=== PATIENT | male | born 1960 | race African-American/Black ===

== ENCOUNTER 2023-04-21 14:18 | Emergency (ER) | payer OTHER ==
--- OUTSIDE RECORDS SUMMARY | 2023-04-21 14:21 | XMS REPORT | Continuity of Care Document ---
:1960 Author Organization [facility] t Address [address] [facility] [address] [place] [address] Care Team Providers Name Role Phone Asked, No Pcp Primary Care Physician Unavailable Manuel Villagran MD Attending Clinician Seth Rosas Attending Clinician SETH ROSAS Attending Clinician Unavailable NARCISO SRINIVASAN Attending Clinician Unavailable Payers Payer Name Policy Type Policy Number Effective Date Expiration Date S ource Problems Condition Condition Condition Status Onset Resolution Last Treating Co mments Source Name Details Category Date Date Treatment Clinician Date LEFT EAR LEFT EAR Diagnosis Active 2020-102021-09-04 Memoria Active 11-03 05:23:00 l 09/03/2021 00:00: Brendon Evangelista 00 Hospital History of Past Illness Condition Condition Condition Status Onset Resolution Last Treating Co mments Source Name Details Category Date Date Treatment Clinician Date Foreign Foreign Problem 2020-102021-09-06 2021-09-06 Memoria body in body in 11-04 22:01:05 22:01:05 l left ear, left ear, 18:00: Jass freitas initial initial 00 encounter encounter 09/04/2021 Tonja [facility] Allergies, Adverse Reactions, Alerts This patient has no known allergies or adverse reactions. Social History Social Habit Start Date Stop Date Quantity Comments Source History of tobacco Smokes tobacco [facility] use daily Hospital Sexual orientation [facility] Tobacco use and 2022-02-19 2022-02-19 Smokeless [facility] exposure 00:00:00 00:00:00 tobacco non-user Hospital Alcohol intake 2022-02-19 2022-02-19 Lifetime [facility] 00:00:00 00:00:00 non-drinker Hospital (finding) History of Social 2022-02-19 2022-02-[address] function 00:00:00 00:00:00 Hospital Sex Assigned At [birth year] [facility] 00:00:00 00:00:00 Hospital Smoking Status Start Date Stop Date Source Smokes tobacco daily 2022-02-19 00:00:00 [facility] Social History [facility] Medications Ordered Filled Start Stop Current Ordering Indication Dosage Frequency Signature Comments Components Source Medication Medication Date Date Medication? Clinician (SIG) Name Name Hydrocortis 2020-10 Yes 2 drp, Shamar danette one 11-04 LEFT EAR, l MG/ML / 06:02: QID, X 7 Brendon n Neomycin 00 day, # 10 3.5 MG/ML / mL, 0 Polymyxin B Refill(s) 30409 UNT/ML Otic Solution [Cortispori n Otic] Hydrocortis 2020-10 Yes 2 drp, Shamar danette one 11-04 LEFT EAR, l MG/ML / 06:02: QID, X 7 Brendon n Neomycin 00 day, # 10 3.5 MG/ML / mL, 0 Polymyxin B Refill(s) 81829 UNT/ML Otic Solution [Cortispori n Otic] Hydrocortis 2020-10 Yes 2 drp, Shamar danette one 11-04 LEFT EAR, l MG/ML / 06:02: QID, X 7 Brendon n Neomycin 00 day, # 10 3.5 MG/ML / mL, 0 Polymyxin B Refill(s) 93305 UNT/ML Otic Solution [Cortispori n Otic] Hydrocortis 2020-10 Yes 2 drp, Shamar danette one 11-04 LEFT EAR, l MG/ML / 06:02: QID, X 7 Brendon n Neomycin 00 day, # 10 3.5 MG/ML / mL, 0 Polymyxin B Refill(s) 39018 UNT/ML Otic Solution [Cortispori n Otic] Hydrocortis 2020-10 Yes 2 drp, Shamar danette one 10 1-09 LEFT EAR, l MG/ML / 06:02: QID, X 7 Brendon n Neomycin 00 day, # 10 3.5 MG/ML / mL, 0 Polymyxin B Refill(s) 66390 UNT/ML Otic Solution [Cortispori n Otic] Hydrocortis 2020-10 Yes 2 drp, Shamar danette one 10 1-09 LEFT EAR, l MG/ML / 06:02: QID, X 7 Brendon n Neomycin 00 day, # 10 3.5 MG/ML / mL, 0 Polymyxin B Refill(s) 92942 UNT/ML Otic Solution [Cortispori n Otic] Vital Signs Vital Name Observation Time Observation Value Comments Source Systolic blood 2022-02-19 11:17:00 178 mm[Hg] [facility] pressure Diastolic blood 2022-02-19 11:17:00 110 mm[Hg] [facility] pressure Heart rate 2022-02-19 11:17:00 82 /min [facility] Body temperature 2022-02-19 11:17:00 36.39 Юлия [facility] Respiratory rate 2022-02-19 11:17:00 18 /min [facility] Body height 2022-02-19 11:17:00 180.3 cm [facility] Body weight 2022-02-19 11:17:00 90.719 kg [facility] BMI 2022-02-19 11:17:00 27.89 kg/m2 [facility] Oxygen saturation in 2022-02-19 11:17:00 100 /min [facility] Arterial blood by Pulse oximetry Heart Rate 2021-09-04 05:59:00 [facility] Temperature Oral (F) 2021-09-04 05:59:00 98.2 F [facility] Systolic (mm Hg) 2021-09-04 05:59:00 Shamar [facility] Diastolic (mm Hg) 2021-09-04 05:59:00 Mem [facility] Respitory Rate 2021-09-04 05:59:00 Memori al [place] Weight 2021-09-04 05:24:00 [facility] Systolic (mm Hg) 2021-09-04 05:24:00 Shamar rial Phu Diastolic (mm Hg) 2021-09-04 05:24:00 Mem rickie [facility] Heart Rate 2021-09-04 05:24:00 [facility] Respitory Rate 2021-09-04 05:24:00 Benny al [facility] Procedures This patient has no known procedures. Plan of Care Planned Activity Planned Date Details Comments Source Future Scheduled 2023-04-14 [facility] Test 08:22:48 malignant neoplasm of colon (procedure) [code = 642719685] Future Scheduled 2023-04-14 [facility] Test 08:22:48 malignant neoplasm of colon (procedure) [code = 181965927] Future Scheduled 2023-04-14 [facility] Test 08:22:48 malignant neoplasm of colon (procedure) [code = 648768429] Future Scheduled 2023-04-14 Pneumococcal Vaccine: [facility] Test 08:22:48 Pediatrics (0 to 5 Years) and At-Risk Patients (6 to 64 Years) (1 - PCV) [code = Pneumococcal Vaccine: Pediatrics (0 to 5 Years) and At-Risk Patients (6 to 64 Years) (1 - PCV)] Future Scheduled 2023-04-14 Hepatitis C screening [facility] Test 08:22:48 (procedure) [code = 340865949] Future Scheduled 2023-04-14 [facility] Test 08:22:48 malignant neoplasm of colon (procedure) [code = 007582347] Future Scheduled 2023-04-14 [facility] Test 08:22:48 malignant neoplasm of colon (procedure) [code = 457470847] Future Scheduled 2023-04-14 [facility]ING[facility]ACCIN[facility] ([facility] 08:22:48 of 2) [code = SHINGLES VACCINES (1 of 2)] Future Scheduled 2023-04-14 COVID-19 VACCINE (4 - [facility] Test 08:22:48 Moderna series) [code = COVID-19 VACCINE (4 - Moderna series)] Future Scheduled 2023-04-14 INFLUENZA VACCINE [facility] Test 08:22:48 [code = INFLUENZA VACCINE] Future Scheduled 2022-11-10 Pneumococcal Vaccine: [facility] Test 12:12:32 Pediatrics (0 to 5 Years) and At-Risk Patients (6 to 64 Years) (1 - PCV) [code = Pneumococcal Vaccine: Pediatrics (0 to 5 Years) and At-Risk Patients (6 to 64 Years) (1 - PCV)] Future Scheduled 2022-11-10 Hepatitis C screening [facility] Test 12:12:32 (procedure) [code = 187175200] Future Scheduled 2022-11-10 COLONOSCOPY SCREENING [facility] Test 12:12:32 [code = COLONOSCOPY SCREENING] Future Scheduled 2022-11-10 SHINGLES VACCINES ([address] [facility] Test 12:12:32 of 2) [code = SHINGLES VACCINES (1 of 2)] Future Scheduled 2022-11-10 COVID-19 VACCINE (4 - [facility] Test 12:12:32 Booster for Moderna series) [code = COVID-19 VACCINE (4 - Booster for Moderna series)] Future Scheduled 2022-11-10 INFLUENZA VACCINE [facility] Test 12:12:32 [code = INFLUENZA VACCINE] Future Scheduled 2022-11-10 Pneumococcal Vaccine: [facility] Test 12:12:32 Pediatrics (0 to 5 Years) and At-Risk Patients (6 to 64 Years) (1 - PCV) [code = Pneumococcal Vaccine: Pediatrics (0 to 5 Years) and At-Risk Patients (6 to 64 Years) (1 - PCV)] Future Scheduled 2022-11-10 Hepatitis C screening [facility] Test 12:12:32 (procedure) [code = 090886063] Future Scheduled 2022-11-10 COLONOSCOPY SCREENING [facility] Test 12:12:32 [code = COLONOSCOPY SCREENING] Future Scheduled 2022-11-10 SHINGLES VACCINES (1 [facility] Test 12:12:32 of 2) [code = SHINGLES VACCINES (1 of 2)] Future Scheduled 2022-11-10 COVID-19 VACCINE (4 - [facility] Test 12:12:32 Booster for Moderna series) [code = COVID-19 VACCINE (4 - Booster for Moderna series)] Future Scheduled 2022-11-10 INFLUENZA VACCINE [facility] Test 12:12:32 [code = INFLUENZA VACCINE] Future Scheduled 2022-10-30 Pneumococcal Vaccine: [facility] Test 17:16:11 Pediatrics (0 to 5 Years) and At-Risk Patients (6 to 64 Years) (1 - PCV) [code = Pneumococcal Vaccine: Pediatrics (0 to 5 Years) and At-Risk Patients (6 to 64 Years) (1 - PCV)] Future Scheduled 2022-10-30 Hepatitis C screening [facility] Test 17:16:11 (procedure) [code = [id number]] Future Scheduled 2022-10-30 COLONOSCOPY SCREENING [facility] Test 17:16:11 [code = COLONOSCOPY SCREENING] Future Scheduled 2022-10-30 SHINGLES VACCINES ([address] [facility] Test 17:16:11 of 2) [code = SHINGLES VACCINES (1 of 2)] Future Scheduled 2022-10-30 COVID-19 VACCINE (4 - [facility] Test 17:16:11 Booster for Moderna series) [code = COVID-19 VACCINE (4 - Booster for Moderna series)] Future Scheduled 2022-10-30 INFLUENZA VACCINE [facility] Test 17:16:11 [code = INFLUENZA VACCINE] Future Scheduled 2022-10-30 Pneumococcal Vaccine: [facility] Test 17:16:11 Pediatrics (0 to 5 Years) and At-Risk Patients (6 to 64 Years) (1 - PCV) [code = Pneumococcal Vaccine: Pediatrics (0 to 5 Years) and At-Risk Patients (6 to 64 Years) (1 - PCV)] Future Scheduled 2022-10-30 Hepatitis C screening [facility] Test 17:16:11 (procedure) [code = 592896413] Future Scheduled 2022-10-30 COLONOSCOPY SCREENING [facility] Test 17:16:11 [code = COLONOSCOPY SCREENING] Future Scheduled 2022-10-30 SHINGLES VACCINES ([address] [facility] Test 17:16:11 of 2) [code = SHINGLES VACCINES (1 of 2)] Future Scheduled 2022-10-30 COVID-19 VACCINE (4 - [facility] Test 17:16:11 Booster for Moderna series) [code = COVID-19 VACCINE (4 - Booster for Moderna series)] Future Scheduled 2022-10-30 INFLUENZA VACCINE [facility] Test 17:16:11 [code = INFLUENZA VACCINE] Future Scheduled 2022-10-08 Pneumococcal Vaccine: [facility] Test 01:19:05 Pediatrics (0 to 5 Years) and At-Risk Patients (6 to 64 Years) (1 - PCV) [code = Pneumococcal Vaccine: Pediatrics (0 to 5 Years) and At-Risk Patients (6 to 64 Years) (1 - PCV)] Future Scheduled 2022-10-08 Hepatitis C screening [facility] Test 01:19:05 (procedure) [code = 273166634] Future Scheduled 2022-10-08 COLONOSCOPY SCREENING [facility] Test 01:19:05 [code = COLONOSCOPY SCREENING] Future Scheduled 2022-10-08 SHINGLES VACCINES ([address] [facility] Test 01:19:05 of 2) [code = SHINGLES VACCINES (1 of 2)] Future Scheduled 2022-10-08 COVID-19 VACCINE (4 - [facility] Test 01:19:05 Booster for Moderna series) [code = COVID-19 VACCINE (4 - Booster for Moderna series)] Future Scheduled 2022-10-[address] [facility] Test 01:19:05 [code = INFLUENZA VACCINE] Encounters Start End Encounter Admission Attending Care Care Encounter Source Date/Time Date/Time Type Type Clinicians Facility Department ID 2023-04-14 2023-04-14 Outpatient [facility] [id number] Neri 10:13:52 10:13:52 [id number] F Thornton 2023-02-24 2023-02-24 Outpatient [facility] [id number] Neri 10:39:58 10:39:58 [id number] F Thornton 2022-02-19 2022-02-19 Emergency Araya, [id number] Methodi 11:20:00 13:02:[id number] [id number] Hospit [id number] .[id number] l .8 2021-09-04 2021-09-04 [facility] [id number] Memoria 05:21:35 06:10:[address] 2021-09-04 2021-09-04 Emergency [facility] hospital [id number] Memoria 05:21:35 06:10:[address] 2021-09-03 2021-09-04 Outpatient [place] [id number] 23:21:35 00:10:00 Seth 00 2021-09-03 2021-09-04 Emergency E RALPH, [facility] [id number] [facility] 23:21:00 00:10:00 SETH Rod 2021-07-14 2021-07-14 Emergency SARADANIA, [facility] [id number] [address] [place] 00:00:00 00:00:00 AATIF [address] Results This patient has no known results.
--- NOTE | 2023-04-21 14:34 | EDPHYS ---
Physician Documentation [facility] Name: Ceferino Conklin Age: 62 yrs Sex: Male : 1960 Arrival Date: 04/21/2023 Time: 14:18 Bed Treatment Private MD: ED Physician Nixon Godoy HPI: 04/21 14:27 This 62 yrs old Black Male presents to ER via Ambulatory with complaints of Wrist Pain. [facility] 14:27 The patient or guardian reports pain. Onset: The symptoms/episode began/occurred jmm gradually, 1 day(s) ago. This is a 62/m with a history of gout that presents to the ED with complaints of right wrist pain he attributes to gout. Denies fever. Denies injury. . Historical: - Allergies: 14: No Known Allergies; nj1 - PMHx: 14:26 Gout; nj1 - PSHx: 14:26 Left elbow; nj1 - Immunization history:: Client reports receiving the 2nd dose of the Covid vaccine. - Social history:: Smoking status: Patient reports the use of cigarette tobacco products, smokes one pack cigarettes per day. ROS: 14:27 Constitutional: Negative for fever, chills, and weight loss, Cardiovascular: Negative jmm for chest pain, palpitations, and edema, Respiratory: Negative for shortness of breath, cough, wheezing, and pleuritic chest pain. 14:27 MS/extremity: Positive for pain. 14:27 All other systems are negative. Exam: 14:27 Constitutional: This is a well developed, well nourished patient who is awake, alert, jmm and in no acute distress. Head/Face: atraumatic. Eyes: EOMI, no conjunctival erythema appreciated ENT: Moist Mucus Membranes Neck: Trachea midline, Supple Chest/axilla: Normal chest wall appearance and motion. Cardiovascular: Regular rate and rhythm. No edema appreciated Respiratory: Normal respirations, no respiratory distress appreciated Abdomen/GI: Non distended Skin: General appearance color normal 14:27 Musculoskeletal/extremity: swelling noted to the right wrist, full radial pulse, compartments are soft, NVI. 14:27 Skin: Appearance: Color: normal in color. 14:27 Neuro: Orientation: is normal, Mentation: is normal, Memory: is normal. 14:27 Psych: Behavior/mood is pleasant, cooperative. Vital Signs: 14:23 BP 121 / 76; Pulse 59; Resp 18; Temp 98.5; Pulse Ox 100% ; Weight 86.18 kg; Height 5 nj1 ft. 11 in. ; Pain 8/10; 14:23 Body Mass Index 26.50 (86.18 kg, 180.34 cm) nj 14:23 Pain Scale: Adult nj1 MDM: 14:25 Patient medically screened. [facility] 14:32 Differential diagnosis: gout. Data reviewed: vital signs, nurses notes. Counseling: I clotilde had a detailed discussion with the patient and/or guardian regarding: the historical points, exam findings, and any diagnostic results supporting the discharge/admit diagnosis, radiology results, the need for outpatient follow up, to return to the emergency department if symptoms worsen or persist or if there are any questions or concerns that arise at home. Administered Medications: 14:54 Drug: Dexamethasone IM 10 mg Route: IM; Site: left ventrogluteal; cm10 15:15 Follow up: Response: No adverse reaction cm10 14:55 Drug: Ketorolac IM 30 mg Route: IM; Site: right ventrogluteal; cm10 15:16 Follow up: Response: No adverse reaction cm10 Disposition: 15:27 Co-signature as Attending Physician, Nixon Godoy MD I reviewed the patient's care rn provided by the Advanced Practice Provider and agree with the diagnosis and treatment plan. Disposition Summary: 04/21/23 14:33 Discharge Ordered Location: Home [facility] Condition: Stable [facility] Diagnosis - Gout, unspecified [facility] Followup: [facility] - With: Perico Zambrano MD - When: 2 - 3 days - Reason: Recheck today's complaints, Continuance of care, Re-evaluation by your physician Discharge Instructions: - Discharge Summary Sheet [facility] - Gout [facility] Forms: - Medication Reconciliation Form [facility] - Thank You Letter [facility] - Antibiotic Education [facility] - Prescription Opioid Use [facility] - [email or web address] [facility] Prescriptions: - Diclofenac Sodium 75 mg Oral Tablet Sustained Release - take 1 tablet by ORAL route 2 times per day; 30 tablet; Refills: 0, Product [facility] Selection Permitted - Medrol (Jason) 4 mg Oral Tablets, Dose Pack - take 1 tablet by ORAL route as directed - follow package instructions; 1 [facility] packet; Refills: 0, Product Selection Permitted Signatures: Dimitri Cosme PA PA jmm Nieto, Roman, MD MD rn Hui Chang RN RN nj1 Vickie Vasquez RN RN cm10
--- NOTE | 2023-04-21 14:34 | ER ---
Nurse's Notes [facility] Name: Ceferino Conklin Age: 62 yrs Sex: Male : 1960 Arrival Date: 04/21/2023 Time: 14:18 Bed Treatment Private MD: Diagnosis: Gout, unspecified Presentation: 04/21 14:23 Chief complaint: Patient states: Right wrist pain since yesterday, getting worse. Pt nj1 thinks it is gout because he has had it before. Coronavirus screen: Vaccine status: Patient reports receiving the 2nd dose of the covid vaccine. Ebola Screen: Patient denies travel to an Ebola-affected area in the 21 days before illness onset. Initial Sepsis Screen: Does the patient meet any 2 criteria? No. Patient's initial sepsis screen is negative. Does the patient have a suspected source of infection? No. Patient's initial sepsis screen is negative. Risk Assessment: Do you want to hurt yourself or someone else? Patient reports no desire to harm self or others. Onset of symptoms was April 20, 2023. 14:23 Method Of Arrival: Ambulatory [facility] 14:23 Acuity: TABATHA 3 nj1 Historical: - Allergies: 14:26 No Known Allergies; nj1 - PMHx: 14:26 Gout; nj1 - PSHx: 14:26 Left elbow; nj1 - Immunization history:: Client reports receiving the 2nd dose of the Covid vaccine. - Social history:: Smoking status: Patient reports the use of cigarette tobacco products, smokes one pack cigarettes per day. Screenin:15 [facility] ED Fall Risk Assessment (Adult) History of falling in the last 3 months, cm10 including since admission No falls in past 3 months (0 pts) Confusion or Disorientation No (0 pts) Intoxicated or Sedated No (0 pts) Impaired Gait No (0 pts) Mobility Assist Device Used No (0 pt) Altered Elimination No (0 pt) Score/Fall Risk Level 0 - 2 = Low Risk Oriented to surroundings, Maintained a safe environment. Abuse screen: Denies threats or abuse. Denies injuries from another. Nutritional screening: No deficits noted. Tuberculosis screening: No symptoms or risk factors identified. Assessment: 15:14 General: Appears in no apparent distress. comfortable, Behavior is calm, cooperative. cm10 Pain: Complains of pain in medial aspect of right wrist. Neuro: No deficits noted. Level of Consciousness is awake, alert, Oriented to person, place, time, situation. Respiratory: No deficits noted. Airway is patent Respiratory effort is even, unlabored, Respiratory pattern is. Musculoskeletal: Reports pain in medial aspect of right wrist. Vital Signs: 14:23 BP 121 / 76; Pulse 59; Resp 18; Temp 98.5; Pulse Ox 100% ; Weight 86.18 kg; Height 5 nj1 ft. 11 in. ; Pain 8/10; 14:23 Body Mass Index 26.50 (86.18 kg, 180.34 cm) nj1 14:23 Pain Scale: Adult [facility] ED Course: 14:20 Patient arrived in ED. rg4 14:21 Dimitri Cosme PA is PHCP. clotilde 14:22 Nixon Godoy MD is Attending Physician. [facility] 14:26 Triage completed. nj1 14:28 Arm band placed on left wrist. ks1 14:33 Perico Zambrano MD is Referral Physician. [facility] 15:14 No provider procedures requiring assistance completed. Patient did not have IV access cm10 during this emergency room visit. 15:15 Patient has correct armband on for positive identification. cm10 Administered Medications: 14:54 Drug: Dexamethasone IM 10 mg Route: IM; Site: left ventrogluteal; cm10 15:15 Follow up: Response: No adverse reaction cm10 14:55 Drug: Ketorolac IM 30 mg Route: IM; Site: right ventrogluteal; cm10 15:16 Follow up: Response: No adverse reaction cm10 Medication: 15:15 VIS not applicable for this client. cm10 Outcome: 14:33 Discharge ordered by MD. [facility] 15:15 Discharged to home ambulatory. cm10 15:15 Condition: good 15:15 Discharge instructions given to patient, Instructed on discharge instructions, follow up and referral plans. medication usage, Demonstrated understanding of instructions, follow-up care, medications, Prescriptions given X 2. 15:16 Patient left the ED. cm10 Signatures: Dimitri Cosme PA PA jmm Garcia, Rubi rg4 Hui Chang, RN RN nj1 Vickie Vasquez RN RN cm10
[2023-04-21] MEDS ORDERED: KETOROLAC 30 MG/ML INJ ONE (14:58)
[2023-04-21] MEDS ORDERED: dexAMETHasone 10 MG/ML VIAL ONE (14:58)
[2023-04-21 15:21] VITALS: BP 121/76; TEMP 98.5; O2SAT 100
== END 2023-04-21 15:16 | disposition home or self-care (01) ==
LOC: ER 14:18
DX: M10.9 Gout, unspecified (principal); F17.210 Nicotine dependence, cigarettes, uncomplicated
CPT/HCPCS: J1100

== ENCOUNTER → 2023-10-21 | Emergency (ER) | payer OTHER ==
--- NOTE | 2023-10-21 11:33 | ER ---
Nurse's Notes [facility] Name: Ceferino Conklin Age: 63 yrs Sex: Male : 1960 Arrival Date: 10/21/2023 Time: 11:11 Bed IW4 Private MD: Diagnosis: Constipation, unspecified Presentation: 10/21 11:24 Chief complaint: Patient states: Lower abdominal pain since yesterday. +constipation. ll1 Last BM Friday. Coronavirus screen: Client denies travel out of the [place] in the last 14 days. At this time, the client does not indicate any symptoms associated with coronavirus-19. Ebola Screen: Patient denies travel to an Ebola-affected area in the 21 days before illness onset. Initial Sepsis Screen: Does the patient meet any 2 criteria? No. Patient's initial sepsis screen is negative. Does the patient have a suspected source of infection? Yes: Acute abdominal pain. Risk Assessment: Do you want to hurt yourself or someone else? Patient reports no desire to harm self or others. Onset of symptoms was October 20, 2023. 11:24 Method Of Arrival: Ambulatory ll1 11:24 Acuity: TABATHA 3 ll1 Triage Assessment: 11:26 General: Appears uncomfortable, Behavior is calm, cooperative, appropriate for age. ll1 Pain: Complains of pain in abdomen Pain currently is 4 out of 10 on a pain scale. Quality of pain is described as aching, crampy. GI: Reports lower abdominal pain, upper abdominal pain, constipation, cramping. Historical: - Allergies: 11:24 No Known Allergies; ll1 - PMHx: 11:20 Gout; ll1 11:27 Hypertensive disorder; ll1 - PSHx: 11:20 left elbow; ll1 - Immunization history:: Adult Immunizations up to date. - Social history:: Smoking status: Patient reports the use of cigarette tobacco products, smokes one-half pack cigarettes per day. Assessment: 11:40 Reassessment: No changes from previously documented assessment. Patient and/or family ll1 updated on plan of care and expected duration. Pain level reassessed. Vital Signs: 11:24 BP 134 / 76; Pulse 72; Resp 17; Temp 98.8; Pulse Ox 100% ; Weight 88.45 kg; Height 5 ll1 ft. 11 in. ; Pain 4/10; 11:24 Body Mass Index 27.20 (88.45 kg, 180.34 cm) ll1 11:24 Pain Scale: Adult ll1 ED Course: 11:13 Patient arrived in ED. mr 11:19 Luis Gutiérrez MD is Attending Physician. ec2 11:20 Arm band placed on. ll1 11:26 Triage completed. ll1 Administered Medications: No medications were administered Outcome: 11:32 Discharge ordered by . ec2 11:41 Patient left the ED. 1 11:41 Discharged to home ambulatory, 1 11:41 Condition: stable 11:41 Discharge instructions given to patient, Instructed on discharge instructions, follow up and referral plans. medication usage, Demonstrated understanding of instructions, follow-up care, medications, Prescriptions given X 2, Signatures: Tiara Carrion, Reg Reg Gustavo Heredia, RN RN 1 Luis Gutiérrez MD MD ec2
--- NOTE | 2023-10-21 11:33 | EDPHYS ---
Physician Documentation [facility] Name: Ceferino Conklin Age: 63 yrs Sex: Male : 1960 Arrival Date: 10/21/2023 Time: 11:11 Bed IW4 Private MD: ED Physician Luis Gutiérrez HPI: 10/21 11:30 This 63 yrs old Black Male presents to ER via Ambulatory with complaints of ec2 Constipation. 11:30 Patient arrives today for evaluation of constipation. Patient reports that he has not ec2 had a bowel movement in 3 days. States that he typically goes more regularly. Patient has a chief complaint listed initially as abdominal pain however reports that he has no abdominal pain, denies any nausea or vomiting. Patient reports no previous abdominal surgeries, denies any cough and cold symptoms, denies any other concerns. States today taking MiraLAX with no improvement in symptoms which will prompted evaluation today.. Historical: - Allergies: 11:24 No Known Allergies; ll1 - PMHx: 11:20 Gout; ll1 11:27 Hypertensive disorder; ll1 - PSHx: 11:20 left elbow; ll1 - Immunization history:: Adult Immunizations up to date. - Social history:: Smoking status: Patient reports the use of cigarette tobacco products, smokes one-half pack cigarettes per day. ROS: 11:30 Constitutional: as per hpi ec2 Exam: 11:30 Constitutional: GEN: NAD Head: atraumatic Eyes: EOMI Ears: External ears are ec2 normal. CV: regular rate LUNGS: no respiratory distress ABD: non-distended, soft, nontender, not guarding, not rigid. Umbilical hernia noted that is easily reducible without discoloration noted. SKIN: no evidence of rashes MSK: no evidence of trauma NEURO: moves all extremities equally Vital Signs: 11:24 BP 134 / 76; Pulse 72; Resp 17; Temp 98.8; Pulse Ox 100% ; Weight 88.45 kg; Height 5 ll1 ft. 11 in. ; Pain 4/10; 11:24 Body Mass Index 27.20 (88.45 kg, 180.34 cm) ll1 11:24 Pain Scale: Adult ll1 MDM: 11:30 Data reviewed: vital signs. ED course: Patient arrives today for evaluation of ec2 constipation. Examination remarkable for a well-appearing individual who has reassuring vital signs and has a benign abdomen without evidence of distention or guarding or rigidity. I will prescribe the patient a suppository as well as medication for constipation. Clinically I have a low suspicion for small bowel obstruction given patient's reassuring abdominal examination as well as the patient's lack of previous abdominal surgeries and patient otherwise has been tolerating p.o. without issue. Additionally have a low suspicion for electrolyte disturbances given the patient's general well appearance. Will discharge home have follow-up with a primary care doctor.. 11:32 Patient medically screened. ec2 Administered Medications: No medications were administered Disposition Summary: 10/21/23 11:32 Discharge Ordered Notes: Location: Home ec2 Condition: Stable ec2 Diagnosis - Constipation, unspecified ec2 Followup: ec2 - With: Private Physician - When: - Reason: Re-evaluation by your physician Discharge Instructions: - Discharge Summary Sheet ec2 - Constipation, Adult ec2 Forms: - Medication Reconciliation Form ec2 - Thank You Letter ec2 - Antibiotic Education ec2 - Prescription Opioid Use ec2 - Patient Portal Instructions ec2 - Leadership Thank You Letter ec2 Prescriptions: - glycerin (adult) suppository - insert 1 suppository RECTAL route daily as needed for constipation; 10 ec2 suppository; Refills: 0, Product Selection Permitted - Lactulose 10 gram/15 mL Oral Solution - take 30 milliliters ORAL route once daily; 300 milliliter; Refills: 0, Product ec2 Selection Permitted Signatures: Gustavo Heredia RN RN ll1 Luis Gutiérrez MD MD ec2
[2023-10-21 12:25] VITALS: BP 134/76; TEMP 98.8; O2SAT 100
== END ==
LOC: ER 11:11
DX: K59.00 Constipation, unspecified (principal)
CPT/HCPCS: 99283